=== PATIENT | male | born 1980 | race Two or more races ===

== ENCOUNTER 2017-01-08 13:42 | Emergency (ER) | payer MEDICAID ==
[~2017-01-08] VITALS: Ht 165.1 cm; Wt 76.7 kg
[2017-01-08 14:06] VITALS: BP 149/90
[2017-01-08] MEDS: ACETAMINOPHEN 500 MG TAB PO ONE (14:27)
[2017-01-08] MEDS: ACETAMINOPHEN 325 MG TAB PO ONE (14:27)
[2017-01-08] MEDS: ALBUTEROL SULF 2.5 MG/0.5ML(0.5%) NEB SOLN NEB ONE (14:45)
[2017-01-08] MEDS ORDERED: cefTRIAXone SOD 1,000 MG VL IM ONE (14:45)
[2017-01-08] MEDS: IPRATROPIUM BROM 0.5 MG/2.5ML INH SOL NEB ONE (14:45)
[2017-01-08] MEDS ORDERED: methylPREDNISolone SOD SUCC 125 MG/2 ML VL IM ONE (14:45)
[2017-01-08] MEDS: SODIUM CHLORIDE 0.9% 1,000 ML IV ONE (14:58)
[2017-01-08 15:06] LABS: Basophils # (auto) 0 uL; Basophils % (auto) 0.7 % (0.0-2.0); CONDITION Y; Eosinophils # (auto) 0 uL; Eosinophils % (auto) 0.1 % (0.0-7.0); Hematocrit 46.6 % (41.0-53.0); Hemoglobin 15.8 g/dL (13.5-17.5); Lymphocytes # (auto) 1.4 uL; Lymphocytes % (auto) 22.5 % (10.0-50.0); Mean Corpuscular Hgb Conc. 33.9 g/dL (32.0-36.0); Mean Corpuscular Volume 91.5 fL (80.0-100.0); Mean Platelet Volume 7.7 fL (7.4-10.4); Monocytes # (auto) 0.5 uL; Monocytes % (auto) 7.7 % (0.0-12.0); Neutrophils # (auto) 4.4 uL; Platelet Count (auto) 242 10^3/uL (140-450); Red Cell Distribution Width 13.2 % (11.6-16.0); White Blood Cell 6.4 10^3/uL (4.4-10.8)
[2017-01-08 15:26] LABS: Albumin 3.8 g/dL (3.4-5.0); BUN/Creatinine Ratio 10.5; Calcium 8.3 mg/dL (8.5-10.1); Potassium 3.8 mmol/L (3.5-5.1)
[2017-01-08 15:29] LABS: Bilirubin, Total 0.7 mg/dL (0.2-1.0); Total Protein 8.1 g/dL (6.4-8.2)
[2017-01-08 15:50] LABS: Urine Bilirubin Negative (Negative); Urine Blood Negative /uL (Negative); Urine Color Yellow (Yellow); Urine Glucose Normal (Normal); Urine Ketone Negative (Negative); Urine Mucus FEW (None Seen); Urine Nitrite Negative (Negative); Urine RBC 1 /hpf (0 - 3); Urine Urobilinogen Normal (Negative); Urine pH 5.5 (5.0-8.0)
[2017-01-08] MEDS: methylPREDNISolone SOD SUCC 125 MG/2 ML VL IV ONE (16:13)
== END 2017-01-08 16:32 | disposition home or self-care (01) ==
LOC: ER 13:44
DX: J20.9 Acute bronchitis, unspecified (principal); J01.90 Acute sinusitis, unspecified; R19.7 Diarrhea, unspecified
CPT/HCPCS: 36415; 71020; 80053; 81001; 85025; 94640; 96361; 96374; 99285; J2930